=== PATIENT | female | born 1990 | race Caucasian/White ===

== ENCOUNTER 2022-02-13 10:20 | Emergency (ER) ==
[~2022-02-13] VITALS: Ht 170.2 cm; Wt 67.4 kg
== END 2022-02-13 13:53 | disposition left against medical advice (07) ==
LOC: M ED 10:20
DX: Z53.21 Procedure and treatment not carried out due to patient leaving prior to being seen by health care provider (principal)

== ENCOUNTER 2023-07-17 17:10 | Emergency (ER) | payer SELFPAY ==
[~2023-07-17] VITALS: Ht 170.2 cm; Wt 62.0 kg
[2023-07-17 18:04] LABS: APPEARANCE, URINE HAZY (CLEAR); BACTERIA, URINE AUTO NEGATIVE (NEGATIVE); BILIRUBIN, URINE AUTO NEGATIVE (NEGATIVE); BLOOD, URINE BLOOD NEGATIVE (NEGATIVE); COLOR, URINE YELLOW (YELLOW); GLUCOSE, URINE (UA) AUTO NEGATIVE (NEGATIVE); KETONE, URINE AUTO NEGATIVE (NEGATIVE); LEUKOCYTE ESTERASE, URINE AUTO NEGATIVE (NEGATIVE); MUCUS, URINE SMALL (NEGATIVE); NITRITE, URINE AUTO NEGATIVE (NEGATIVE); PROTEIN, URINE AUTO NEGATIVE (NEGATIVE); RBC, URINE AUTO 1 /HPF (0-3); SPECIFIC GRAVITY URINE AUTO 1.014 (1.002-1.035); SQUAMOUS EPITHELIAL CELL UR AU 11 /HPF (0-6); UROBILINOGEN, URINE AUTO 0.2 mg/dL (0.0-2.0); WBC, URINE AUTO 2 /HPF (0-3)
[2023-07-17] MEDS ORDERED: ONDANSETRON 4MG 2ML VIAL IV ONE (19:00)
[2023-07-17] MEDS ORDERED: NS 1,000 ML IV ONE (19:00)
[2023-07-17] MEDS ORDERED: KETOROLAC 30 MG/ML 1ML VIAL IV ONE (19:00)
[2023-07-17 19:40] LABS: BASO % 0.2 % (0.0-1.0); EOS % 0.5 % (0.0-3.0); HEMATOCRIT 41.5 % (36.0-47.0); HEMOGLOBIN 14.3 g/dl (12.0-15.5); LYMPH # 1.6 10^3/uL (1.5-5.0); LYMPH % 20.3 % (24.0-44.0); MEAN CORPUSCULAR HEMOGLOBIN 32.2 pg (27.0-33.0); MEAN CORPUSCULAR HGB CONC 34.5 g/dl (32.0-36.5); MEAN CORPUSCULAR VOLUME 93.5 fl (80.0-96.0); MONO # 0.4 10^3/uL (0.0-0.8); NEUTROPHILS % 73.8 % (36.0-66.0); PLATELET COUNT, AUTOMATED 202 10^3/uL (150-450); RED BLOOD COUNT 4.44 10^6/uL (4.00-5.40); WHITE BLOOD COUNT 8.1 10^3/uL (4.0-10.0)
[2023-07-17 20:12] LABS: LIPASE 27 U/L (12-53)
[2023-07-17 20:15] LABS: ALBUMIN 4.2 G/DL (3.2-5.2); ALKALINE PHOSPHATASE 65 U/L (46-116); ALT/SGPT < 9 U/L (7.0-40); AST/SGOT < 8 U/L (<34); BILIRUBIN,DIRECT 0.2 MG/DL (<0.4); BILIRUBIN,TOTAL 0.7 MG/DL (0.3-1.2); BLOOD UREA NITROGEN 9 MG/DL (9-23); CALCIUM LEVEL 9.4 MG/DL (8.5-10.1); CARBON DIOXIDE LEVEL 25 MMOL/L (20-31); CHLORIDE LEVEL 109 MMOL/L (98-107); CREATININE FOR GFR 0.68 MG/DL (0.55-1.30); GLOMERULAR FILTRATION RATE > 60.0 (>60); GLUCOSE, FASTING 95 MG/DL (60-100); POTASSIUM SERUM 4.1 MMOL/L (3.5-5.1); SODIUM LEVEL 141 MMOL/L (136-145); TOTAL PROTEIN 7.3 G/DL (5.7-8.2)
[2023-07-17] MEDS ORDERED: ONDA4TAB6 PO (21:13)
[2023-07-17 21:49] VITALS: BP 97/54; TEMP 97.1; O2SAT 100
== END 2023-07-17 21:50 | disposition home or self-care (01) ==
LOC: M ED 17:10
DX: K52.9 Noninfective gastroenteritis and colitis, unspecified (principal); G43.909 Migraine, unspecified, not intractable, without status migrainosus; F17.200 Nicotine dependence, unspecified, uncomplicated; F12.10 Cannabis abuse, uncomplicated; Z79.83 Long term (current) use of bisphosphonates; Z79.899 Other long term (current) drug therapy
CPT/HCPCS: 74177; 80048; 80076; 81001; 83605; 83690; 84702; 85025; 87040; 87086; 96361; 96374; 99284; J1885; J2405

== ENCOUNTER 2023-07-19 14:40 | Emergency (ER) | payer SELFPAY ==
[~2023-07-19] VITALS: Ht 170.2 cm; Wt 62.6 kg
[~2023-07-19 14:40] MED LIST: ONDA4TAB6 PO
[2023-07-19] MEDS ORDERED: KETOROLAC 30 MG/ML 1ML VIAL IV ONE (16:30)
[2023-07-19] MEDS ORDERED: NS 1,000 ML IV ONE (16:30)
[2023-07-19] MEDS ORDERED: METOCLOPRAMIDE INJ 10MG/2ML VIAL IV ONE (16:30)
[2023-07-19 17:08] LABS: BASO % 0.5 % (0.0-1.0); EOS # 0.1 10^3/uL (0.0-0.5); EOS % 0.9 % (0.0-3.0); HEMATOCRIT 38.4 % (36.0-47.0); HEMOGLOBIN 13.1 g/dl (12.0-15.5); LYMPH # 1.6 10^3/uL (1.5-5.0); LYMPH % 24.5 % (24.0-44.0); MEAN CORPUSCULAR HEMOGLOBIN 32.3 pg (27.0-33.0); MEAN CORPUSCULAR HGB CONC 34.1 g/dl (32.0-36.5); MEAN CORPUSCULAR VOLUME 94.6 fl (80.0-96.0); MONO # 0.4 10^3/uL (0.0-0.8); MONO % 6.1 % (2.0-8.0); NEUTROPHILS # 4.4 10^3/uL (1.5-8.5); NEUTROPHILS % 67.8 % (36.0-66.0); PLATELET COUNT, AUTOMATED 185 10^3/uL (150-450); RED BLOOD COUNT 4.06 10^6/uL (4.00-5.40); WHITE BLOOD COUNT 6.5 10^3/uL (4.0-10.0)
[2023-07-19 17:28] LABS: LIPASE 26 U/L (12-53)
[2023-07-19 17:32] LABS: ALBUMIN 3.9 G/DL (3.2-5.2); ALKALINE PHOSPHATASE 56 U/L (46-116); ALT/SGPT < 9 U/L (7.0-40); AST/SGOT < 8 U/L (<34); BILIRUBIN,DIRECT 0.2 MG/DL (<0.4); BILIRUBIN,TOTAL 0.7 MG/DL (0.3-1.2); BLOOD UREA NITROGEN 10 MG/DL (9-23); CALCIUM LEVEL 8.7 MG/DL (8.5-10.1); CARBON DIOXIDE LEVEL 24 MMOL/L (20-31); CHLORIDE LEVEL 111 MMOL/L (98-107); CREATININE FOR GFR 0.73 MG/DL (0.55-1.30); GLOMERULAR FILTRATION RATE > 60.0 (>60); GLUCOSE, FASTING 98 MG/DL (60-100); POTASSIUM SERUM 3.9 MMOL/L (3.5-5.1); SODIUM LEVEL 143 MMOL/L (136-145); TOTAL PROTEIN 6.7 G/DL (5.7-8.2)
[2023-07-19 17:44] LABS: RSV AMPLIFICATION NEGATIVE (NEGATIVE)
[2023-07-19] MEDS ORDERED: REGL10TA6 PO (18:27)
[2023-07-19 18:39] VITALS: BP 98/54; TEMP 98.2; O2SAT 98
== END 2023-07-19 19:13 | disposition home or self-care (01) ==
LOC: M ED 14:40
DX: A08.11 Acute gastroenteropathy due to Norwalk agent (principal); F17.200 Nicotine dependence, unspecified, uncomplicated; F12.10 Cannabis abuse, uncomplicated; Z79.83 Long term (current) use of bisphosphonates; Z79.899 Other long term (current) drug therapy
CPT/HCPCS: 80048; 80076; 83690; 84702; 85025; 87507; 87631; 96361; 96374; 96375; 99284; J1885; J2765

== ENCOUNTER 2024-01-05 09:29 | Emergency (ER) | payer SELFPAY ==
[~2024-01-05] VITALS: Ht 170.2 cm; Wt 68.2 kg
[~2024-01-05 09:29] MED LIST changes: +REGL10TA6 PO
[2024-01-05 12:39] VITALS: BP 102/61; TEMP 97.3; O2SAT 100
== END 2024-01-05 13:12 | disposition home or self-care (01) ==
LOC: M ED 09:29
DX: S60.022A Contusion of left index finger without damage to nail, initial encounter (principal); F17.200 Nicotine dependence, unspecified, uncomplicated; Y92.9 Unspecified place or not applicable; Y93.9 Activity, unspecified; Y99.9 Unspecified external cause status; Z87.42 Personal history of other diseases of the female genital tract

== ENCOUNTER 2024-02-08 21:53 | Emergency (ER) | payer SELFPAY ==
[~2024-02-08] VITALS: Ht 170.2 cm; Wt 61.1 kg
[2024-02-08 22:50] LABS: RSV AMPLIFICATION NEGATIVE (NEGATIVE)
[2024-02-08 23:45] LABS: URINE PREG TEST NEGATIVE (NEGATIVE)
[2024-02-09] MEDS: ONDANSETRON 4MG 2ML VIAL IV ONE (04:28)
[2024-02-09] MEDS: NS 1,000 ML IV ONE (04:28)
[2024-02-09] MEDS: MORPHINE 4 MG/ML 1ML VIAL IV ONE (04:31)
[2024-02-09 04:53] VITALS: TEMP 98.3
[2024-02-09 04:53] LABS: BASO % 0.4 % (0.0-1.0); EOS % 0.5 % (0.0-3.0); HEMATOCRIT 40.2 % (36.0-47.0); LYMPH # 2.3 10^3/uL (1.5-5.0); MEAN CORPUSCULAR HEMOGLOBIN 33.3 pg (27.0-33.0); MEAN CORPUSCULAR HGB CONC 34.8 g/dl (32.0-36.5); MEAN CORPUSCULAR VOLUME 95.7 fl (80.0-96.0); MONO # 0.5 10^3/uL (0.0-0.8); MONO % 6.2 % (2.0-8.0); NEUTROPHILS # 5.3 10^3/uL (1.5-8.5); NEUTROPHILS % 64.7 % (36.0-66.0); PLATELET COUNT, AUTOMATED 258 10^3/uL (150-450); WHITE BLOOD COUNT 8.1 10^3/uL (4.0-10.0)
[2024-02-09 05:15] LABS: Trichomonas vaginalis (AMP) NOT DETECTED (NEGATIVE)
[2024-02-09 05:15] LABS: LIPASE 25 U/L (12-53)
[2024-02-09 05:17] LABS: ALBUMIN 4.2 G/DL (3.2-5.2); ALKALINE PHOSPHATASE 61 U/L (46-116); ALT/SGPT 23 U/L (7.0-40); AST/SGOT 21 U/L (<34); BILIRUBIN,DIRECT 0.2 MG/DL (<0.4); BILIRUBIN,TOTAL 0.7 MG/DL (0.3-1.2); BLOOD UREA NITROGEN 12 MG/DL (9-23); CALCIUM LEVEL 8.9 MG/DL (8.5-10.1); CARBON DIOXIDE LEVEL 26 MMOL/L (20-31); CHLORIDE LEVEL 112 MMOL/L (98-107); CREATININE FOR GFR 0.65 MG/DL (0.55-1.30); GLOMERULAR FILTRATION RATE > 60.0 (>60); GLUCOSE, FASTING 86 MG/DL (60-100); POTASSIUM SERUM 4.1 MMOL/L (3.5-5.1); SODIUM LEVEL 142 MMOL/L (136-145); TOTAL PROTEIN 7.2 G/DL (5.7-8.2)
[2024-02-09] MEDS ORDERED: ISOVUE-370 76% 100ML VIAL As Ordered ONE (05:32)
[2024-02-09 05:39] LABS: GC DNA AMPLIFICATION NEGATIVE (NEGATIVE)
[2024-02-09] MEDS: metroNIDAZOLE (FLAGYL) 500MG TABLET PO ONE (05:47)
[2024-02-09 06:03] VITALS: BP 109/65
[2024-02-09] MEDS ORDERED: ONDA4TAB6 PO (06:04)
[2024-02-09] MEDS ORDERED: METR-265 PO (06:04)
[2024-02-09 06:06] VITALS: O2SAT 99
== END 2024-02-09 06:20 | disposition home or self-care (01) ==
LOC: M ED 21:53
DX: R10.9 Unspecified abdominal pain (principal); N76.0 Acute vaginitis; R11.10 Vomiting, unspecified; F41.9 Anxiety disorder, unspecified; F51.01 Primary insomnia; F17.200 Nicotine dependence, unspecified, uncomplicated; Z79.83 Long term (current) use of bisphosphonates; Z79.899 Other long term (current) drug therapy
CPT/HCPCS: 74177; 80048; 80076; 81001; 83690; 84703; 85025; 87210; 87631; 87661; 87810; 87850; 93041; 96361; 96374; 96375; 99284; J2405; Q9967

== ENCOUNTER 2024-02-15 16:11 | Emergency (ER) | payer SELFPAY ==
[~2024-02-15] VITALS: Ht 170.2 cm; Wt 68.2 kg
[~2024-02-15 16:11] MED LIST changes: +METR-265 PO
[2024-02-15 16:12] VITALS: BP 112/66; TEMP 97.1; O2SAT 97
[2024-02-15] MEDS ORDERED: EXCETAB32 PO (16:39)
[2024-02-15 20:11] LABS: BASO % 0.3 % (0.0-1.0); EOS # 0.1 10^3/uL (0.0-0.5); EOS % 0.8 % (0.0-3.0); HEMATOCRIT 40.7 % (36.0-47.0); LYMPH # 2.7 10^3/uL (1.5-5.0); LYMPH % 29.8 % (24.0-44.0); MEAN CORPUSCULAR HEMOGLOBIN 33.1 pg (27.0-33.0); MEAN CORPUSCULAR HGB CONC 34.4 g/dl (32.0-36.5); MEAN CORPUSCULAR VOLUME 96.2 fl (80.0-96.0); MONO # 0.6 10^3/uL (0.0-0.8); MONO % 6.9 % (2.0-8.0); NEUTROPHILS # 5.6 10^3/uL (1.5-8.5); PLATELET COUNT, AUTOMATED 249 10^3/uL (150-450); RED BLOOD COUNT 4.23 10^6/uL (4.00-5.40); WHITE BLOOD COUNT 9.1 10^3/uL (4.0-10.0)
[2024-02-15 20:27] LABS: LIPASE 32 U/L (12-53)
[2024-02-15 20:30] LABS: ALBUMIN 4.1 G/DL (3.2-5.2); ALKALINE PHOSPHATASE 48 U/L (46-116); ALT/SGPT 26 U/L (7.0-40); AST/SGOT 17 U/L (<34); BILIRUBIN,DIRECT 0.2 MG/DL (<0.4); BILIRUBIN,TOTAL 0.7 MG/DL (0.3-1.2); BLOOD UREA NITROGEN 11 MG/DL (9-23); CALCIUM LEVEL 9.5 MG/DL (8.5-10.1); CARBON DIOXIDE LEVEL 26 MMOL/L (20-31); CHLORIDE LEVEL 107 MMOL/L (98-107); CREATININE FOR GFR 0.66 MG/DL (0.55-1.30); GLOMERULAR FILTRATION RATE > 60.0 (>60); GLUCOSE, FASTING 92 MG/DL (60-100); POTASSIUM SERUM 4.3 MMOL/L (3.5-5.1); SODIUM LEVEL 138 MMOL/L (136-145); TOTAL PROTEIN 6.8 G/DL (5.7-8.2)
[2024-02-15 20:40] LABS: HCG, SERUM QUALITATIVE NEGATIVE (NEGATIVE)
[2024-02-15] MEDS: ONDANSETRON 4MG ORAL DISINTEGRATING TAB PO ONE (21:18)
[2024-02-15] MEDS ORDERED: ISOVUE-370 76% 100ML VIAL As Ordered ONE (22:34)
[2024-02-15] MEDS: PROMETHAZINE 25MG/ML 1ML VIAL IV ONE (22:51)
[2024-02-15] MEDS: NS 1,000 ML IV ONE (22:52)
[2024-02-16] MEDS ORDERED: PROM25TA12 PO (01:19)
[2024-02-16] MEDS ORDERED: METR0.7526 TOP (01:20)
== END 2024-02-16 01:30 | disposition home or self-care (01) ==
LOC: M ED 16:11
DX: N76.0 Acute vaginitis (principal); F41.9 Anxiety disorder, unspecified; F32.A Depression, unspecified; F17.200 Nicotine dependence, unspecified, uncomplicated; F12.10 Cannabis abuse, uncomplicated; F10.10 Alcohol abuse, uncomplicated; Z79.82 Long term (current) use of aspirin; Z79.83 Long term (current) use of bisphosphonates; Z79.2 Long term (current) use of antibiotics; Z79.899 Other long term (current) drug therapy
CPT/HCPCS: 74177; 80048; 80076; 81001; 83690; 84703; 85025; 96361; 96374; 99284; J2550; Q9967

== ENCOUNTER 2024-08-19 03:24 | Emergency (ER) | payer SELFPAY ==
[~2024-08-19] VITALS: Ht 170.2 cm; Wt 58.5 kg
[~2024-08-19 03:24] MED LIST changes: +EXCETAB32 PO; +METR0.7526 TOP; +ONDA-282 PO; -ONDA4TAB6 PO; +PROM25TA12 PO
[2024-08-19 04:14] LABS: BASO % 0.2 % (0.0-1.0); EOS # 0.1 10^3/uL (0.0-0.5); EOS % 0.6 % (0.0-3.0); HEMATOCRIT 40.1 % (36.0-47.0); HEMOGLOBIN 14.2 g/dl (12.0-15.5); LYMPH # 1.2 10^3/uL (1.5-5.0); LYMPH % 9.1 % (24.0-44.0); MEAN CORPUSCULAR HEMOGLOBIN 33.4 pg (27.0-33.0); MEAN CORPUSCULAR HGB CONC 35.4 g/dl (32.0-36.5); MEAN CORPUSCULAR VOLUME 94.4 fl (80.0-96.0); MONO # 0.9 10^3/uL (0.0-0.8); NEUTROPHILS # 10.5 10^3/uL (1.5-8.5); NEUTROPHILS % 82.8 % (36.0-66.0); PLATELET COUNT, AUTOMATED 206 10^3/uL (150-450); RED BLOOD COUNT 4.25 10^6/uL (4.00-5.40); WHITE BLOOD COUNT 12.7 10^3/uL (4.0-10.0)
[2024-08-19 04:29] LABS: RSV AMPLIFICATION NEGATIVE (NEGATIVE)
[2024-08-19 04:41] LABS: LIPASE 26 U/L (12-53)
[2024-08-19 04:43] LABS: ALKALINE PHOSPHATASE 69 U/L (46-116); ALT/SGPT 13 U/L (7.0-40); AST/SGOT 10 U/L (<34); BILIRUBIN,DIRECT 0.3 MG/DL (<0.4); BILIRUBIN,TOTAL 1.1 MG/DL (0.3-1.2); BLOOD UREA NITROGEN 12 MG/DL (9-23); CALCIUM LEVEL 9.6 MG/DL (8.5-10.1); CARBON DIOXIDE LEVEL 23 MMOL/L (20-31); CHLORIDE LEVEL 112 MMOL/L (98-107); GLOMERULAR FILTRATION RATE > 60.0 (>60); GLUCOSE, FASTING 101 MG/DL (60-100); POTASSIUM SERUM 3.7 MMOL/L (3.5-5.1); SODIUM LEVEL 140 MMOL/L (136-145); TOTAL PROTEIN 7.3 G/DL (5.7-8.2)
[2024-08-19] MEDS: ONDANSETRON 4MG ORAL DISINTEGRATING TAB PO ONE (07:39)
[2024-08-19 08:22] LABS: CK-MB VALUE MASS < 1.0 NG/ML (<3.6)
[2024-08-19 08:28] LABS: CPK CREATINE PHOSPHOKINASE 54 U/L (34-145); MB/CK RELATIVE INDEX 1.85 (< OR =4)
[2024-08-19] MEDS: BENZONATATE 100MG CAPSULE PO ONE (08:36)
[2024-08-19] MEDS: NS 1,000 ML IV ONE (08:58)
[2024-08-19] MEDS ORDERED: BENZ200C70 PO (09:44)
[2024-08-19] MEDS ORDERED: ONDA-282 PO (09:44)
[2024-08-19 10:28] VITALS: BP 102/58; TEMP 99.4; O2SAT 97
== END 2024-08-19 10:29 | disposition home or self-care (01) ==
LOC: M ED 03:24
DX: R07.9 Chest pain, unspecified (principal); B34.8 Other viral infections of unspecified site; J00 Acute nasopharyngitis [common cold]; I45.10 Unspecified right bundle-branch block; F17.200 Nicotine dependence, unspecified, uncomplicated; F10.10 Alcohol abuse, uncomplicated; Z79.82 Long term (current) use of aspirin; Z79.899 Other long term (current) drug therapy

== ENCOUNTER 2024-12-24 23:37 | Emergency (ER) | payer OTHER, SELFPAY ==
[~2024-12-24] VITALS: Ht 170.2 cm; Wt 65.9 kg
[~2024-12-24 23:37] MED LIST changes: +BENZ200C70 PO
[2024-12-25 00:54] LABS: BASO % 0.2 % (0.0-1.0); EOS # 0.1 10^3/uL (0.0-0.5); EOS % 1.1 % (0.0-3.0); HEMATOCRIT 35.8 % (36.0-47.0); HEMOGLOBIN 12.7 g/dl (12.0-15.5); LYMPH # 1.7 10^3/uL (1.5-5.0); LYMPH % 19.1 % (24.0-44.0); MEAN CORPUSCULAR HEMOGLOBIN 33.3 pg (27.0-33.0); MEAN CORPUSCULAR HGB CONC 35.5 g/dl (32.0-36.5); MONO # 0.6 10^3/uL (0.0-0.8); MONO % 6.2 % (2.0-8.0); NEUTROPHILS # 6.6 10^3/uL (1.5-8.5); NEUTROPHILS % 73.2 % (36.0-66.0); PLATELET COUNT, AUTOMATED 211 10^3/uL (150-450); RED BLOOD COUNT 3.81 10^6/uL (4.00-5.40); WHITE BLOOD COUNT 9.1 10^3/uL (4.0-10.0)
[2024-12-25] MEDS: NS (Normal Saline) 0.9% 1,000 ML IV ONE (01:00)
[2024-12-25 01:02] LABS: LIPASE 25 U/L (12-53)
[2024-12-25 01:05] LABS: ALBUMIN 3.5 G/DL (3.2-5.2); ALKALINE PHOSPHATASE 50 U/L (35-104); ALT/SGPT 14 U/L (7.0-40); AST/SGOT 9 U/L (<34); BILIRUBIN,DIRECT 0.1 MG/DL (<0.4); BILIRUBIN,TOTAL 0.4 MG/DL (0.3-1.2); BLOOD UREA NITROGEN 11 MG/DL (9-23); CALCIUM LEVEL 8.5 MG/DL (8.5-10.1); CARBON DIOXIDE LEVEL 23 MMOL/L (20-31); CHLORIDE LEVEL 115 MMOL/L (98-107); CREATININE FOR GFR 0.66 MG/DL (0.55-1.30); GLOMERULAR FILTRATION RATE > 60.0 (>60); GLUCOSE, FASTING 100 MG/DL (60-100); POTASSIUM SERUM 3.6 MMOL/L (3.5-5.1); SODIUM LEVEL 144 MMOL/L (136-145); TOTAL PROTEIN 6.3 G/DL (5.7-8.2)
[2024-12-25 01:21] LABS: HCG, SERUM QUALITATIVE NEGATIVE (NEGATIVE)
[2024-12-25] MEDS ORDERED: ISOVUE-370 76% 100ML VIAL As Ordered ONE (02:05)
[2024-12-25] MEDS: HALOPERIDOL LACTATE 5MG/ML VIAL IV ONE (02:11)
[2024-12-25 02:48] LABS: KETONE, URINE AUTO RFX 1+ mg/dL (NEGATIVE); LEUKOCYTE ESTERASE UR AUTO RFX NEGATIVE (NEGATIVE); MUCUS, URINE RFX SMALL (NEGATIVE); NITRITE, URINE AUTO RFX NEGATIVE (NEGATIVE); RBC, URINE AUTO RFX 0 /HPF (0-3); SQUAM EPITHELIAL CELL UR AURFX 4 /HPF (0-6); WBC, URINE AUTO RFX 1 /HPF (0-3)
[2024-12-25 03:08] LABS: BARBITURATES URINE NEGATIVE (NEGATIVE); COCAINE METABOLITE URINE NEGATIVE (NEGATIVE); METHADONE URINE NEGATIVE (NEGATIVE); OPIATES URINE NEGATIVE (NEGATIVE); PHENCYCLIDINE URINE NEGATIVE (NEGATIVE)
[2024-12-25 03:09] LABS: AMPHETAMINES LEVEL URINE NEGATIVE (NEGATIVE); BENZODIAZEPINES URINE NEGATIVE (NEGATIVE)
[2024-12-25 03:11] LABS: CANNABINOIDS URINE POSITIVE (NEGATIVE)
[2024-12-25] MEDS ORDERED: PROM25TA12 PO (03:15)
[2024-12-25 04:15] VITALS: BP 105/51; TEMP 97.8; O2SAT 98
== END 2024-12-25 04:36 | disposition home or self-care (01) ==
LOC: M ED 23:37 → EDBD 23:37 → M ED 12-25 04:36
DX: K52.9 Noninfective gastroenteritis and colitis, unspecified (principal); B97.4 Respiratory syncytial virus as the cause of diseases classified elsewhere; F17.200 Nicotine dependence, unspecified, uncomplicated; F12.10 Cannabis abuse, uncomplicated; F10.10 Alcohol abuse, uncomplicated; Z79.82 Long term (current) use of aspirin; Z79.899 Other long term (current) drug therapy
CPT/HCPCS: 70450; 71045; 74177; 80048; 80076; 80307; 81001; 83690; 84703; 85025; 87486; 87581; 87633; 87798; 93041; 96361; 96374; 99284; J1630; Q9967

== ENCOUNTER → 2025-07-06 | Outpatient (REF) | payer OTHER ==
[2025-07-06 17:13] LABS: BASO # 0.0 10^3/uL (0.0-0.2); BASO % 0.5 % (0.0-1.0); EOS # 0.1 10^3/uL (0.0-0.5); EOS % 0.9 % (0.0-3.0); LYMPH # 1.7 10^3/uL (1.5-5.0); LYMPH % 30.4 % (24.0-44.0); MONO # 0.5 10^3/uL (0.0-0.8); MONO % 8.0 % (2.0-8.0); NEUTROPHILS # 3.4 10^3/uL (1.5-8.5); NEUTROPHILS % 60.0 % (36.0-66.0); PLATELET COUNT, AUTOMATED 265 10^3/uL (150-450)
[2025-07-06 17:21] LABS: ALT/SGPT 13 U/L (7.0-40); AST/SGOT 14 U/L (<34); CALCIUM LEVEL 9.5 MG/DL (8.5-10.1); CARBON DIOXIDE LEVEL 25 MMOL/L (20-31); CHLORIDE LEVEL 106 MMOL/L (98-107); CREATININE FOR GFR 0.76 MG/DL (0.55-1.30); GLOMERULAR FILTRATION RATE > 90.0 (>60); POTASSIUM SERUM 4.5 MMOL/L (3.5-5.1); SODIUM LEVEL 140 MMOL/L (136-145)
[2025-07-06 18:47] LABS: HIV 1&2 SCREEN NEGATIVE (NEGATIVE)
[2025-07-06 18:54] LABS: HEPATITIS C VIRUS ABY INDEX < 0.02 INDEX (<0.8)
== END ==
LOC: M LAB REF 16:40
PROVIDERS: ATTEND Nurse Practitioner Family
DX: R11.0 Nausea (principal); R53.83 Other fatigue; Z11.9 Encounter for screening for infectious and parasitic diseases, unspecified; Z86.19 Personal history of other infectious and parasitic diseases

== ENCOUNTER → 2025-08-31 | Outpatient (REF) | payer OTHER | LOC: M LAB REF 13:41 | PROVIDERS: ATTEND Nurse Practitioner Family | DX: R14.0 Abdominal distension (gaseous) (principal) ==

== ENCOUNTER → 2025-09-05 | Outpatient (REF) | payer OTHER ==
[2025-09-05 15:11] LABS: C REACTIVE PROTEIN QUANTITATIV < 0.50 MG/DL (<1.0); VITAMIN B12 LEVEL 271 PG/ML (211-911)
[2025-09-05 16:27] LABS: ESTIMATED AVERAGE GLUCOSE 100.0 MG/DL (60-110)
== END ==
LOC: M LAB REF 13:53
PROVIDERS: ATTEND Nurse Practitioner Family
DX: R11.0 Nausea (principal); R14.0 Abdominal distension (gaseous); R10.11 Right upper quadrant pain

== ENCOUNTER 2025-09-09 19:14 | Emergency (ER) | payer OTHER ==
[~2025-09-09] VITALS: Ht 170.2 cm; Wt 59.1 kg
[2025-09-09 20:00] LABS: BASO # 0.0 10^3/uL (0.0-0.2); BASO % 0.2 % (0.0-1.0); EOS # 0.0 10^3/uL (0.0-0.5); EOS % 0.2 % (0.0-3.0); LYMPH # 1.7 10^3/uL (1.5-5.0); LYMPH % 13.6 % (24.0-44.0); MONO # 0.6 10^3/uL (0.0-0.8); MONO % 4.7 % (2.0-8.0); NEUTROPHILS # 10.4 10^3/uL (1.5-8.5); NEUTROPHILS % 81.1 % (36.0-66.0); PLATELET COUNT, AUTOMATED 251 10^3/uL (150-450)
[2025-09-09] MEDS: NS (Normal Saline) 0.9% 1,000 ML IV ONE (20:00)
[2025-09-09] MEDS: KETOROLAC 30 MG/ML 1 ML VIAL IV ONE (20:01)
[2025-09-09] MEDS: ONDANSETRON 4MG 2ML VIAL IV ONE (20:01)
[2025-09-09 20:26] LABS: HCG, SERUM QUALITATIVE NEGATIVE (NEGATIVE)
[2025-09-09 20:27] LABS: CK-MB VALUE MASS < 1.0 NG/ML (<3.6)
[2025-09-09 20:28] LABS: ALT/SGPT 23 U/L (7.0-40); AST/SGOT 19 U/L (<34); CALCIUM LEVEL 9.6 MG/DL (8.5-10.1); CARBON DIOXIDE LEVEL 19 MMOL/L (20-31); CHLORIDE LEVEL 111 MMOL/L (98-107); CREATININE FOR GFR 0.63 MG/DL (0.55-1.30); GLOMERULAR FILTRATION RATE > 90.0 (>60); POTASSIUM SERUM 3.7 MMOL/L (3.5-5.1); SODIUM LEVEL 144 MMOL/L (136-145)
[2025-09-09 20:34] LABS: CPK CREATINE PHOSPHOKINASE 57 U/L (34-145)
[2025-09-09 21:38] LABS: CK-MB VALUE MASS < 1.0 NG/ML (<3.6)
[2025-09-09 21:39] LABS: CPK CREATINE PHOSPHOKINASE 51 U/L (34-145)
[2025-09-09] MEDS: METHOCARBAMOL 1,000 MG/10 ML VIAL IV ONE (23:29)
[2025-09-10 00:39] VITALS: BP 105/59; TEMP 96.1; O2SAT 98
[2025-09-11] MEDS ORDERED: SUCR1TAB56 (20:44)
[2025-09-11] MEDS ORDERED: OMEP-173 (20:44)
[2025-09-11] MEDS ORDERED: METR-265 (20:44)
[2025-09-11] MEDS ORDERED: CLAR500T97 (20:44)
[2025-09-11] MEDS ORDERED: TETR1CAP2 (20:44)
[2025-09-11] MEDS ORDERED: PANT40TA29 (20:44)
== END 2025-09-10 00:48 | disposition home or self-care (01) ==
LOC: M ED 19:14
DX: R07.9 Chest pain, unspecified (principal); R11.2 Nausea with vomiting, unspecified; R00.1 Bradycardia, unspecified; I45.10 Unspecified right bundle-branch block; I49.1 Atrial premature depolarization; F17.200 Nicotine dependence, unspecified, uncomplicated; F12.10 Cannabis abuse, uncomplicated; Z88.5 Allergy status to narcotic agent; Z88.8 Allergy status to other drugs, medicaments and biological substances; Z79.82 Long term (current) use of aspirin; Z79.899 Other long term (current) drug therapy
CPT/HCPCS: 36415; 71045; 80048; 80076; 82550; 82553; 83605; 83690; 84484; 84703; 85025; 87486; 87581; 87633; 87798; 93005; 93041; 94760; 96361; 96374; 96375; 99285; J1885; J2405; J2800

== ENCOUNTER 2025-09-11 20:22 | Emergency (ER) | payer OTHER ==
[~2025-09-11] VITALS: Ht 170.2 cm; Wt 62.8 kg
[2025-09-11] MEDS ORDERED: SUCR1TAB56 (20:44)
[2025-09-11] MEDS ORDERED: METR-265 (20:44)
[2025-09-11] MEDS ORDERED: CLAR500T97 (20:44)
[2025-09-11] MEDS ORDERED: PANT40TA29 (20:44)
[2025-09-11] MEDS ORDERED: OMEP-173 (20:44)
[2025-09-11] MEDS ORDERED: TETR1CAP2 (20:44)
[2025-09-11] MEDS: KETOROLAC 30 MG/ML 1 ML VIAL IV ONE (23:16)
[2025-09-11] MEDS: NS (Normal Saline) 0.9% 1,000 ML IV ONE (23:16)
[2025-09-11] MEDS: FAMOTIDINE 20 MG/2 ML VIAL IVP ONE (23:16)
[2025-09-11 23:38] LABS: CK-MB VALUE MASS < 1.0 NG/ML (<3.6)
[2025-09-11 23:47] LABS: ALT/SGPT 24 U/L (7.0-40); AST/SGOT 24 U/L (<34); CALCIUM LEVEL 8.0 MG/DL (8.5-10.1); CARBON DIOXIDE LEVEL 22 MMOL/L (20-31); CHLORIDE LEVEL 114 MMOL/L (98-107); CPK CREATINE PHOSPHOKINASE 96 U/L (34-145); CREATININE FOR GFR 0.68 MG/DL (0.55-1.30); GLOMERULAR FILTRATION RATE > 90.0 (>60); POTASSIUM SERUM 4.1 MMOL/L (3.5-5.1); SODIUM LEVEL 146 MMOL/L (136-145)
[2025-09-11] MEDS ORDERED: ISOVUE-370 76% 100 ML VIAL As Ordered ONE (23:56)
[2025-09-12 00:09] LABS: BASO # 0.0 10^3/uL (0.0-0.2); BASO % 0.3 % (0.0-1.0); EOS # 0.0 10^3/uL (0.0-0.5); EOS % 0.3 % (0.0-3.0); LYMPH # 1.5 10^3/uL (1.5-5.0); LYMPH % 15.9 % (24.0-44.0); MONO # 0.6 10^3/uL (0.0-0.8); MONO % 5.9 % (2.0-8.0); NEUTROPHILS # 7.4 10^3/uL (1.5-8.5); NEUTROPHILS % 77.1 % (36.0-66.0); PLATELET COUNT, AUTOMATED 202 10^3/uL (150-450)
[2025-09-12 01:03] LABS: CK-MB VALUE MASS < 1.0 NG/ML (<3.6)
[2025-09-12 01:07] LABS: CPK CREATINE PHOSPHOKINASE 73 U/L (34-145)
[2025-09-12 03:00] VITALS: BP 107/55; TEMP 97.6; O2SAT 98
[2025-09-12] MEDS ORDERED: PEPC1TAB5 PO (03:03)
== END 2025-09-12 03:16 | disposition home or self-care (01) ==
LOC: M ED 20:22
DX: R07.9 Chest pain, unspecified (principal); R11.2 Nausea with vomiting, unspecified; I45.10 Unspecified right bundle-branch block; F17.200 Nicotine dependence, unspecified, uncomplicated; F12.10 Cannabis abuse, uncomplicated; K76.0 Fatty (change of) liver, not elsewhere classified; Z88.5 Allergy status to narcotic agent; Z88.8 Allergy status to other drugs, medicaments and biological substances; Z79.82 Long term (current) use of aspirin; Z79.899 Other long term (current) drug therapy
CPT/HCPCS: 71260; 74177; 80048; 80076; 82550; 82553; 83690; 84484; 85025; 93005; 93041; 96361; 96374; 99285; J1308; J1885; J2550; Q9967

== ENCOUNTER 2025-10-02 07:22 | Emergency (ER) | payer OTHER ==
[~2025-10-02] VITALS: Ht 170.2 cm; Wt 59.1 kg
[~2025-10-02 07:22] MED LIST changes: +CLAR500T97; +METR-265; +OMEP-173; +PANT40TA29; +PEPC1TAB5 PO; +SUCR1TAB56; +TETR1CAP2
[2025-10-02 07:59] VITALS: TEMP 98.5
[2025-10-02 08:29] LABS: BASO # 0.0 10^3/uL (0.0-0.2); BASO % 0.5 % (0.0-1.0); EOS # 0.1 10^3/uL (0.0-0.5); EOS % 1.2 % (0.0-3.0); LYMPH # 1.2 10^3/uL (1.5-5.0); LYMPH % 21.1 % (24.0-44.0); MONO # 0.5 10^3/uL (0.0-0.8); MONO % 9.4 % (2.0-8.0); NEUTROPHILS # 3.9 10^3/uL (1.5-8.5); NEUTROPHILS % 67.5 % (36.0-66.0); PLATELET COUNT, AUTOMATED 264 10^3/uL (150-450)
[2025-10-02 09:02] LABS: ALT/SGPT 11 U/L (7.0-40); AST/SGOT 13 U/L (<34); CALCIUM LEVEL 8.9 MG/DL (8.5-10.1); CARBON DIOXIDE LEVEL 23 MMOL/L (20-31); CHLORIDE LEVEL 109 MMOL/L (98-107); CK-MB VALUE MASS < 1.0 NG/ML (<3.6); CPK CREATINE PHOSPHOKINASE 65 U/L (34-145); CREATININE FOR GFR 0.72 MG/DL (0.55-1.30); GLOMERULAR FILTRATION RATE > 90.0 (>60); POTASSIUM SERUM 3.8 MMOL/L (3.5-5.1); SODIUM LEVEL 139 MMOL/L (136-145)
[2025-10-02 09:03] LABS: HCG, SERUM QUALITATIVE NEGATIVE (NEGATIVE)
[2025-10-02] MEDS ORDERED: MAG SULF 1GM/100ML (MAG RUN) 1 GM in IV 1 EA IV SCH (09:45)
[2025-10-02] MEDS: HALOPERIDOL LACTATE 5 MG/ML VIAL IV STA (10:04)
[2025-10-02] MEDS: NS (Normal Saline) 0.9% 1,000 ML IV ONE (10:04)
[2025-10-02 11:00] VITALS: BP 97/59; O2SAT 97
== END 2025-10-02 11:06 | disposition left against medical advice (07) ==
LOC: M ED 07:22 → EDBD 07:22 → M ED 11:06
DX: R07.9 Chest pain, unspecified (principal); R11.2 Nausea with vomiting, unspecified; I45.10 Unspecified right bundle-branch block; F17.200 Nicotine dependence, unspecified, uncomplicated; F12.10 Cannabis abuse, uncomplicated; Z88.5 Allergy status to narcotic agent; Z88.8 Allergy status to other drugs, medicaments and biological substances; Z79.82 Long term (current) use of aspirin; Z79.899 Other long term (current) drug therapy; Z79.2 Long term (current) use of antibiotics
CPT/HCPCS: 36415; 80047; 80048; 80076; 82550; 82553; 83690; 84484; 84703; 85025; 85379; 86850; 86900; 86901; 93005; 93041; 99285; J1630

== ENCOUNTER 2025-10-30 19:06 | Emergency (ER) | payer OTHER ==
[~2025-10-30] VITALS: Ht 170.2 cm; Wt 59.1 kg
[2025-10-30 23:12] LABS: BASO # 0.0 10^3/uL (0.0-0.2); BASO % 0.2 % (0.0-1.0); EOS # 0.0 10^3/uL (0.0-0.5); EOS % 0.1 % (0.0-3.0); LYMPH # 1.7 10^3/uL (1.5-5.0); LYMPH % 19.8 % (24.0-44.0); MONO # 0.4 10^3/uL (0.0-0.8); MONO % 4.9 % (2.0-8.0); NEUTROPHILS # 6.4 10^3/uL (1.5-8.5); NEUTROPHILS % 74.9 % (36.0-66.0); PLATELET COUNT, AUTOMATED 228 10^3/uL (150-450)
[2025-10-30] MEDS ORDERED: ISOVUE-370 76% 100 ML VIAL As Ordered ONE (23:15)
[2025-10-30] MEDS: LORazepam 1 MG TAB PO STA (23:23)
[2025-10-30] MEDS: NS (Normal Saline) 0.9% 1,000 ML IV ONE (23:28)
[2025-10-30] MEDS: ONDANSETRON 4MG/2ML VIAL IV ONE (23:29)
[2025-10-30] MEDS: MECLIZINE 25 MG TABLET PO ONE (23:31)
[2025-10-30 23:36] LABS: ALT/SGPT 12 U/L (7.0-40); AST/SGOT 19 U/L (<34); CALCIUM LEVEL 8.9 MG/DL (8.5-10.1); CARBON DIOXIDE LEVEL 22 MMOL/L (20-31); CHLORIDE LEVEL 110 MMOL/L (98-107); CK-MB VALUE MASS < 1.0 NG/ML (<3.6); CREATININE FOR GFR 0.62 MG/DL (0.55-1.30); GLOMERULAR FILTRATION RATE > 90.0 (>60); POTASSIUM SERUM 4.1 MMOL/L (3.5-5.1); SODIUM LEVEL 141 MMOL/L (136-145)
[2025-10-30 23:37] LABS: CPK CREATINE PHOSPHOKINASE 66 U/L (34-145)
[2025-10-31 00:45] LABS: KETONE, URINE AUTO RFX 1+ mg/dL (NEGATIVE); LEUKOCYTE ESTERASE UR AUTO RFX NEGATIVE (NEGATIVE); MUCUS, URINE RFX SMALL (NEGATIVE); NITRITE, URINE AUTO RFX NEGATIVE (NEGATIVE); RBC, URINE AUTO RFX 1 /HPF (0-3); SQUAM EPITHELIAL CELL UR AURFX 6 /HPF (0-6); WBC, URINE AUTO RFX 1 /HPF (0-3)
[2025-10-31 01:17] LABS: CK-MB VALUE MASS < 1.0 NG/ML (<3.6)
[2025-10-31 01:21] LABS: CPK CREATINE PHOSPHOKINASE 51 U/L (34-145)
[2025-10-31] MEDS ORDERED: ONDA-282 PO (04:28)
[2025-10-31 05:04] VITALS: BP 97/60; TEMP 100.3; O2SAT 97
[2025-11-01] MEDS ORDERED: VONO1COM PO (12:29)
[2025-11-01] MEDS ORDERED: CARA1TAB6 PO (12:29)
== END 2025-10-31 05:06 | disposition home or self-care (01) ==
LOC: M ED 19:06
DX: K52.9 Noninfective gastroenteritis and colitis, unspecified (principal); N83.201 Unspecified ovarian cyst, right side; B96.81 Helicobacter pylori [H. pylori] as the cause of diseases classified elsewhere; R00.1 Bradycardia, unspecified; I45.10 Unspecified right bundle-branch block; F41.9 Anxiety disorder, unspecified; F32.A Depression, unspecified; F17.200 Nicotine dependence, unspecified, uncomplicated; Z79.82 Long term (current) use of aspirin; Z79.899 Other long term (current) drug therapy; Z88.5 Allergy status to narcotic agent; Z88.8 Allergy status to other drugs, medicaments and biological substances
CPT/HCPCS: 70450; 70496; 70498; 71046; 74177; 80047; 80048; 80076; 81001; 82550; 82553; 83013; 83605; 83690; 84484; 85025; 93005; 93041; 96361; 96374; 99285; J2405; Q9967

== ENCOUNTER 2025-11-01 07:09 | Emergency (ER) | payer OTHER ==
[~2025-11-01] VITALS: Ht 170.2 cm; Wt 59.1 kg
[2025-11-01 10:00] LABS: BASO # 0.0 10^3/uL (0.0-0.2); BASO % 0.3 % (0.0-1.0); EOS # 0.0 10^3/uL (0.0-0.5); EOS % 0.3 % (0.0-3.0); LYMPH # 1.6 10^3/uL (1.5-5.0); LYMPH % 20.3 % (24.0-44.0); MONO # 0.4 10^3/uL (0.0-0.8); MONO % 5.1 % (2.0-8.0); NEUTROPHILS # 5.9 10^3/uL (1.5-8.5); NEUTROPHILS % 73.7 % (36.0-66.0); PLATELET COUNT, AUTOMATED 228 10^3/uL (150-450)
[2025-11-01] MEDS: NS (Normal Saline) 0.9% 1,000 ML IV ONE (10:00)
[2025-11-01] MEDS: FAMOTIDINE 20 MG/2 ML VIAL IVP ONE (10:09)
[2025-11-01 10:29] LABS: ALT/SGPT 11 U/L (7.0-40); AST/SGOT 15 U/L (<34); CALCIUM LEVEL 8.8 MG/DL (8.5-10.1); CARBON DIOXIDE LEVEL 23 MMOL/L (20-31); CHLORIDE LEVEL 113 MMOL/L (98-107); CREATININE FOR GFR 0.59 MG/DL (0.55-1.30); GLOMERULAR FILTRATION RATE > 90.0 (>60); POTASSIUM SERUM 4.2 MMOL/L (3.5-5.1); SODIUM LEVEL 144 MMOL/L (136-145)
[2025-11-01 10:37] LABS: HCG, SERUM QUALITATIVE NEGATIVE (NEGATIVE)
[2025-11-01 11:00] VITALS: TEMP 98.8
[2025-11-01] MEDS: SUCRALFATE SUSP 1GM/10ML UD PO ONE (11:58)
[2025-11-01] MEDS ORDERED: VONO1COM PO (12:29)
[2025-11-01] MEDS ORDERED: CARA1TAB6 PO (12:29)
[2025-11-01 12:30] VITALS: BP 99/61; O2SAT 100
== END 2025-11-01 12:46 | disposition home or self-care (01) ==
LOC: M ED 07:09
DX: K29.70 Gastritis, unspecified, without bleeding (principal); B96.81 Helicobacter pylori [H. pylori] as the cause of diseases classified elsewhere; F41.9 Anxiety disorder, unspecified; F32.9 Major depressive disorder, single episode, unspecified; Z88.5 Allergy status to narcotic agent; Z88.8 Allergy status to other drugs, medicaments and biological substances; Z79.899 Other long term (current) drug therapy; F17.200 Nicotine dependence, unspecified, uncomplicated
CPT/HCPCS: 80053; 84703; 85025; 96361; 96372; 96374; 99284; J1308; J2550